=== PATIENT | male | born 1995 | race Caucasian/White ===

== ENCOUNTER 2016-06-30 16:42 | Day surgery (SDC) | payer BC, OTHER ==
[~2016-06-30] VITALS: Ht 195.6 cm; Wt 86.7 kg
[2016-06-30] MEDS ORDERED: SODIUM CHLORIDE FLUSH 10 ML SYR IV PRN (16:50)
[2016-06-30] MEDS: SODIUM CHLORIDE FLUSH 3 ML SYR IV PRN ×2 (17:06→18:17)
[2016-06-30 17:20] LABS: MEAN CORPUSCULAR HEMOGLOBIN 29.5 PG (26.0-34.0); MEAN CORPUSCULAR VOLUME 82 FL (80-100); MEAN PLATELET VOLUME 9.7 FL (6.0-9.5); PLATELET COUNT 240 10^3uL (150-450); WHITE BLOOD COUNT 21.63 10^3uL (4.0-11.0)
[2016-06-30 17:26] LABS: GLUCOSE, URINE (UA) Negative (Negative); LEUKOCYTE ESTERASE ,URINE Negative (Negative); UROBILINOGEN,URINE 0.2 mg/dL (0.2-1.0)
[2016-06-30 17:29] LABS: CLARITY,URINE Slightly Cloudy; COLOR,URINE Dark Yellow
[2016-06-30 17:30] LABS: BILIRUBIN,URINE 2+ (Negative)
[2016-06-30 17:30] LABS: MEAN CORPUSCULAR HGB CONC 35.9 g/dL (31.0-37.0)
[2016-06-30] MEDS ORDERED: HYDROmorphone 1 MG/ML (DILAUDID) SYRINGE IV ONE ×3 (17:30→19:30)
[2016-06-30 17:33] LABS: ALBUMIN 5.2 g/dL (3.4-5.0); ANION GAP 19.7 MEQ/L (3-15); TOTAL PROTEIN 8.5 g/dL (6.4-8.5)
[2016-06-30 17:45] LABS: BAND NEUTROPHILS % 1 % (0-6); SEGMENTED NEUTROPHILS % 84 % (51-67)
[2016-06-30 17:46] LABS: EOSINOPHILS % 0 % (0-4); LYMPHOCYTES # 1.5 #; MONOCYTES # 1.7 #; MONOCYTES % 8 % (3-11); RBC MORPH NORMAL (NORMAL); TOTAL CELLS COUNTED 100
[2016-06-30 17:49] LABS: RBC,URINE None Seen /HPF; URINE CENTRIFUGED VOLUME 12 mL
--- NOTE | 2016-06-30 18:09 | NUR ---
TEMP 100.6
--- NOTE | 2016-06-30 18:33 | NUR ---
PT TALKS ON PHONE TO FRIEND. CL
[2016-06-30] MEDS ORDERED: CEFOXITIN IV ONE (19:30)
[2016-06-30] MEDS ORDERED: SODIUM CHLORIDE IV ONE (19:30)
[2016-06-30] MEDS ORDERED: CEFOXITIN 1 GM ONE (19:35)
[2016-06-30] MEDS ORDERED: SODIUM CHLORIDE 100 ML ONE (19:36)
--- NOTE | 2016-06-30 19:37 | NUR ---
DR IRIZARRY CONTACTED BY DR ANDERSON AND HE WANTS HIM TO FLOOR ADMIT TO ASC OBSERVATION. LET TRAVEL CLERK KNOW THIS AND ALSO FRONT DEXK. PT TO GO TO ROOM [address] IRIZARRY WILL COME IN AND EXAMINE HIM
--- NOTE | 2016-06-30 19:52 | NUR ---
lead housekeeper Sharmaine aware of pt being admitted to ASC observation and that pt to go to room 315 on med surg
[2016-06-30 20:18] VITALS: BP 134/68
[2016-06-30] MEDS ORDERED: LACTATED RINGERS 1,000 ML IV ONE (20:21)
[2016-06-30] MEDS ORDERED: morphine INJ 2 MG/ML 1 ML SYRINGE IV PRN (21:35)
[2016-06-30] MEDS ORDERED: LACTATED RINGERS 1,000 ML IV SCH (21:35)
--- NOTE | 2016-06-30 23:09 | NUR ---
2001-Pt arrived to 315 via cart, accompanied by ER nurse. Pt is alert and oriented x 4, Resp even and nonlabored, LCTAB, HRRR, BS are hyperactive x 4 quadrants, rates pain 5/10, just received dose of Dilaudid in ER. PT is able to stand and transfer to weight chair and then to bed with no assist. Currently has abx running in to IV in RAC. Dr. Gupta is notified that pt is in room, and reports he will see pt in 20 minutes. 2029-Dr. Gupta is here visiting with pt, ordered stat CT of abdomen, and to call with results. 2114-Radiology here to take pt for CT. 2139-Pt is returned from radiology. 2224-Receive call from [facility] reporting pt has acute appendicitis, notify Dr. Gupta of results. 223-Dr. Gupta is visiting with pt and his parents about procedure and fills out surgical consent. 2245-gym supervisor notified to call in surgical team for appendectomy. 2255-Surgical consent signed by pt and witnessed by this RN.
[2016-06-30] MEDS ORDERED: BUPIVACAINE/EPINEPHRINE 0.5%-1:200,000 (MARCAINE) 30 ML VIAL INJ ONE (23:33)
[2016-06-30 23:35] VITALS: BP 126/73
[2016-06-30] MEDS ORDERED: ALFENTANIL 500 MCG/ML (ALFENTA) 5 ML AMP IV ONE (23:39)
[2016-06-30] MEDS ORDERED: MIDAZOLAM 2 MG/2 ML (VERSED) VIAL ONE (23:39)
[2016-06-30] MEDS ORDERED: PROPOFOL 20 ML IV ONE (23:39)
[2016-06-30] MEDS ORDERED: SUCCINYLCHOLINE 20 MG/ML 10 ML VIAL ONE (23:40)
[2016-07-01] VITALS (12 sets, daily range): BP systolic 103–129; BP diastolic 45–61
[2016-07-01] MEDS ORDERED: ROCURONIUM 50 MG/5 ML (ZEMURON) VIAL IV ONE (00:08)
[2016-07-01] MEDS ORDERED: GLYCOPYRROLATE 0.2 MG/ML (ROBINUL) 1 ML VIAL ONE ×3 (00:10→00:11)
[2016-07-01] MEDS ORDERED: NEOSTIGMINE 1 MG/ML SYRINGE ONE (00:10)
[2016-07-01] MEDS ORDERED: diphenhydrAMINE 50 MG/ML INJ (BENADRYL) ONE (00:16)
[2016-07-01] MEDS ORDERED: ONDANSETRON 2 MG/ML (Z0FRAN) 2 ML VIAL ONE (00:16)
[2016-07-01 00:22] LABS: BILIRUBIN,URINE Negative (Negative); CLARITY,URINE Clear; COLOR,URINE Yellow; GLUCOSE, URINE (UA) Negative (Negative); LEUKOCYTE ESTERASE ,URINE Negative (Negative); UROBILINOGEN,URINE 0.2 mg/dL (0.2-1.0)
[2016-07-01 00:43] LABS: RBC,URINE 0-2 /HPF; URINE CENTRIFUGED VOLUME 12 mL
[2016-07-01] MEDS ORDERED: KETOROLAC 60 MG/2 ML (TORADOL) VIAL IM ONE (01:11)
[2016-07-01] MEDS ORDERED: KETOROLAC 30 MG/ML (TORADOL) 1 ML VIAL IV PRN (02:30)
[2016-07-01] MEDS ORDERED: ONDANSETRON 4 MG (ZOFRAN) ORAL DISSOLVE TAB PO PRN (02:30)
[2016-07-01] MEDS ORDERED: LACTATED RINGERS 1,000 ML IV SCH (02:30)
--- NOTE | 2016-07-01 04:51 | NUR ---
0230-Pt returned from surgery, VS are WNL, IV is infusing without difficulty. Pt is drowsy, but awakens to name, parents are at bedside, rates pain 3/10. Call light is in reach, will continue to monitor. 0300-Prescription for Ultram given to mother, copy placed on chart. 0450-Pt continues to sleep, Resp even and nonlabored, Post-Op VS are WNL, will continue to monitor.
[2016-07-01] MEDS ORDERED: SODIUM CHLORIDE FLUSH 3 ML SYR ONE (07:23)
--- NOTE | 2016-07-01 08:31 | NUR ---
Reports jennifer fluids well. urinated without difficulty. Amb in hallway accompanied by Es.
--- NOTE | 2016-07-01 09:54 | NUR ---
dismissed to home per w/c accompanied by Es DO and parents. Skin w/p/d. Resp reg and unlabored. ALert and oriented x4.
== END 2016-07-01 09:55 | disposition home or self-care (01) ==
LOC: ED 16:46 → MED/SURG 19:38 → ED 20:15 → ASC 20:53 → MED/SURG 20:54 → ASC 07-01 09:55
PROVIDERS: ATTEND Surgery
DX: K35.3 Acute appendicitis with localized peritonitis (principal)
CPT/HCPCS: 36415; 44970; 74022; 74176; 76705; 80053; 81003; 81015; 83690; 85025; 96361; 96365; 96375; 96376; 99284; J0330; J0694; J1170; J1200; J1885; J2250; J2270; J2405; J2710; J3490; J7030; J7050; J7120

== ENCOUNTER 2016-07-13 16:02 | Inpatient (IN) | payer BC, OTHER ==
[~2016-07-13] VITALS: Ht 195.6 cm; Wt 82.6 kg
[2016-07-13 16:10] VITALS: BP 114/62
--- NOTE | 2016-07-13 16:10 | NUR ---
Patient admitted to room [address] Dai's office.
[2016-07-13] MEDS ORDERED: morphine INJ 2 MG/ML 1 ML SYRINGE IV PRN (16:25)
[2016-07-13] MEDS ORDERED: ONDANSETRON 2 MG/ML (Z0FRAN) 2 ML VIAL IV PRN (16:25)
[2016-07-13] MEDS ORDERED: ACETAMINOPHEN 325 MG TAB (TYLENOL) PO PRN (16:25)
[2016-07-13 16:32] VITALS: BP 114/62
--- NOTE | 2016-07-13 16:50 | NUR ---
Patient denies pain at this time. He reports intermittent pain since surgery on June 30.
[2016-07-13 17:33] LABS: BASOPHILS % (AUTO) 0 % (0-2); EOSINOPHILS % (AUTO) 0 % (0-4); LYMPHOCYTES # (AUTO) 1.1 X10^3; MEAN CORPUSCULAR HEMOGLOBIN 28.9 PG (26.0-34.0); MEAN CORPUSCULAR VOLUME 81 FL (80-100); MEAN PLATELET VOLUME 9.7 FL (6.0-9.5); MONOCYTES # (AUTO) 1.3 X10^3; MONOCYTES % (AUTO) 10 % (3-11); NEUTROPHILS # (AUTO) 10.5 X10^3; NEUTROPHILS % (AUTO) 81 % (51-67); PLATELET COUNT 271 10^3uL (150-450); WHITE BLOOD COUNT 12.93 10^3uL (4.0-11.0)
[2016-07-13 17:34] LABS: MEAN CORPUSCULAR HGB CONC 35.7 g/dL (31.0-37.0)
[2016-07-13 17:44] LABS: ALBUMIN 3.6 g/dL (3.4-5.0); ANION GAP 17.5 MEQ/L (3-15); CALCULATED IONIZED CALCIUM 3.9 mg/dL (3.8-4.6); TOTAL PROTEIN 7.3 g/dL (6.4-8.5)
--- NOTE | 2016-07-13 18:15 | NUR ---
Attempted IV access X2 but was unsuccessful.
--- NOTE | 2016-07-13 18:45 | NUR ---
20g IV started to LFA on first attempt by this nurse. SL intact, patent. Urmila Figueroa RN notified of IV site.
[2016-07-13] MEDS: oxyCODONE IMMEDIATE RELEASE 5 MG (OXYIR) TAB PO PRN (20:03)
[2016-07-13] MEDS: PIPERACILLIN/TAZOBACTAM 3.375 GM in SODIUM CHLORIDE 100 ML IV SCH ×2 (20:04→23:00)
[2016-07-14] VITALS (15 sets, daily range): BP systolic 109–150; BP diastolic 49–79
[2016-07-14] MEDS: oxyCODONE IMMEDIATE RELEASE 5 MG (OXYIR) TAB PO PRN ×3 (01:32→21:58)
[2016-07-14] MEDS: PIPERACILLIN/TAZOBACTAM 3.375 GM in SODIUM CHLORIDE 100 ML IV SCH ×3 (05:23→21:58)
--- NOTE | 2016-07-14 06:15 | NUR ---
Patient rests in bed throughout night without needs. Reports pain that "comes and goes" and is helped by OxyIr. Had required two doses today. No needs at this time.
[2016-07-14] MEDS: NS FLUSH 3 ML DAILY IV SCH (07:28)
--- NOTE | 2016-07-14 07:30 | NUR ---
Patient resting in bed upon shift assessment. Alert and oriented X3. Reports right lower abdominal pain rated 2/10 on pain scale. Denies nausea, chills, or other distress. HR RRR. Lung sounds CTAB. Bowel sounds audible in all quadrants. Updated on plan of care for shift. Call light in reach.
--- NOTE | 2016-07-14 08:01 | NUR ---
NUTRITION ASSESSMENT Level 1 Patient: Hernan Yanes Age/Sex: 21/M Date Screened: 07-14-16 Weight: 181.7#/82.6 kg Height: 77 inches Primary Diagnosis: abdominal abscess Diet Order: NPO Relevant labs: N/A Food allergies: N Nutrition Assessment Criteria Age over 80: N Body Mass Index (BMI) under 19: N Admission Screening Indicates Risk? 3 points Moderate/High Risk Diagnosis: 3 points TPN or PPN: N NPO or clear liquid diet: Y Serum Glucose <70 or >180: N/A Hgb A1c >6.7: N/A Total: 6 points Risk Screen: __ Patient at low nutritional risk based on available data; reevaluate in 5-7 days __ Patient at moderate nutritional risk based on available data; reevaluate in 3-5 days _X_ Patient at high nutritional risk; complete Nutrition Assessment within 48 hours of admission.
--- NOTE | 2016-07-14 08:39 | NUR ---
Consent signed by patient for CT guided abscess drainage. Witnessed by this nurse. Patient denies pain or distress. Call light in reach.
[2016-07-14] MEDS ORDERED: LACTATED RINGERS 1,000 ML IV SCH (09:50)
--- NOTE | 2016-07-14 11:03 | NUR ---
Patient to radiology via wheelchair.
[2016-07-14] MEDS ORDERED: ALFENTANIL 1,000 MCG/2 ML AMP IV ONE (11:08)
[2016-07-14] MEDS ORDERED: MIDAZOLAM 2 MG/2 ML (VERSED) VIAL ONE (11:08)
--- NOTE | 2016-07-14 12:06 | NUR ---
NUTRITION ASSESSMENT Level II Patient: Hernan Yanes Age/Sex: 21/M Date Assessed: 07-14-16 ASSESSMENT Pertinent History: Patient admitted with abdominal abscess and screened at high nutritional risk secondary to diagnosis and unintentional weight loss over the past 2 weeks. PMHx appears to be negative except for lap appy on 06-30-16. At that time pt. weighed 190.7#, and pt. reports since then he has had intermittent abdominal pain with poor appetite/intake. Plan is for CT-guided abscess drainage today. Meds/Nutrition: NS Weight: 181.7#/82.6 kg Height: 77 inches Body Mass Index (BMI): 21.6 [place] Body Weight : 208#/94.5 kg % IBW: 87% GASTROINTESTINAL Appetite: poor Diet Order: NPO Unintentional loss of >10 lbs. in 3 months: N Difficult to chew/swallow: N Diabetes: N Relevant Labs: N/A Calculations for Nutritional Assessment Estimated calorie needs: 25-28 kcals/kg = 2,050-2,300 kcals Estimated protein needs: 1.0 g/kg = 82 g./day DIAGNOSIS 1. Nutrition Diagnosis: Inadequate intake related to altered GI function as evidenced by abdominal abscess s/p appendectomy 2 weeks ago with abdominal pain/poor appetite and 9# weight loss (4.7%). NUTRITIONAL INTERVENTION Goal: Patient will receive adequate nutrition to meet his needs. Plan: Will monitor tolerance to diet as advanced and intake for adequacy. Expect appetite/intake to improve with resolution of abscess and improvement in symptoms. Also expect weight to return to UBW once he is eating regularly. Will follow with surgeon. MONITORING & EVALUATION __ Monitor patients menu selections __ Monitor patients food intake per nursing notes _X_ Monitor NPO/clear liquid days __ Monitor lab values __ Monitor I&O __ Other
--- NOTE | 2016-07-14 13:00 | NUR ---
Patient returns to room 303 via cart. Transfers to bed without assistance. Denies pain or distress. Drain intact to right lower abdomen. Vital signs WNL. Will continue to monitor.
--- NOTE | 2016-07-14 14:45 | NUR ---
Drain flushed at this time with 10ml NS per order. Patient tolerates well.
[2016-07-14] MEDS: NS FLUSH 10 ML PRN IV (14:56)
--- NOTE | 2016-07-14 17:50 | NUR ---
PRN OxyIR provided for c/o abdominal pain rated 5/10 on pain scale. Reports attempting to boost self in bed and experiencing 10/10 pain on scale. Drain intact to right lower abdomen. Parents at bedside. Call light in reach.
--- NOTE | 2016-07-14 20:00 | NUR ---
Resting in bed. Is alert and oriented. Abdominal dressing dry and intact. Drain intact with 200 cc brown drainage. Bowel sounds audible in all four quadrants. Denies nausea. Drowsy, arouses easily. No discomforts voiced at this time. Call light within reach.
--- NOTE | 2016-07-14 21:58 | NUR ---
Oxy IR administered per patient request for abdominal pain. Drainage back intact to abdominal wound. 200 cc brown fecal odor from drainage. Flushed tubing with 10 cc NS, returns readily pinkish drainage in tubing. IV Zosyn infusing as ordered. No other needs at this time. Call light within reach.
[2016-07-15] MEDS: oxyCODONE IMMEDIATE RELEASE 5 MG (OXYIR) TAB PO PRN ×4 (05:34→21:35)
--- NOTE | 2016-07-15 05:34 | NUR ---
Oxy IR given per patient request for abdominal pain. Does get relief from pain medication. Denies nausea. SL intact without complications at site. Approximately 250cc fecal smelling drainage in wound drainage bag. Patient has no concern or requests this morning. Call light within reach.
[2016-07-15] MEDS: PIPERACILLIN/TAZOBACTAM 3.375 GM in SODIUM CHLORIDE 100 ML IV SCH ×3 (05:35→22:00)
[2016-07-15 08:01] VITALS: BP 111/56
[2016-07-15] MEDS: NS FLUSH 3 ML DAILY IV SCH (10:00)
--- NOTE | 2016-07-15 10:07 | NUR ---
Pt c/o pain of 01/13. Oxy IR tab x1 given for pain. Pt has visitor in room.
--- NOTE | 2016-07-15 12:45 | NUR ---
Pt c/o pain, OxyIR tab 1 given for pain. Pt sitting up in bed, visitor at bedside.
[2016-07-15 15:35] VITALS: BP 120/75
[2016-07-15] MEDS: KETOROLAC 30 MG/ML (TORADOL) 1 ML VIAL IV SCH ×2 (16:17→21:35)
[2016-07-15 17:57] VITALS: BP 111/49
--- NOTE | 2016-07-15 18:40 | NUR ---
Drain flushed twice today, approximately 300cc in bag.
--- NOTE | 2016-07-15 20:00 | NUR ---
Patient resting in bed. Father at bedside. Visited with patient about the importance of ambulating tonight before bed. Denies pain at present time. Accordion drain intact with approximately 350 cc drainage. Patient comfortable at present time.
--- NOTE | 2016-07-15 21:35 | NUR ---
OxyIR 5mg administered for abdominal discomfort. Bowel sounds audible in al four quadrants. Ambulated two different times around the nursing station. Accordion drain flushed with 100 NS. Then hooked back to suction bag. Drainage in tubing is pink, while contents in the bag remain brown with fecal odor. Patient has no other needs at this time. Call light within reach.
[2016-07-16 00:48] VITALS: BP 92/56
[2016-07-16] MEDS: oxyCODONE IMMEDIATE RELEASE 5 MG (OXYIR) TAB PO PRN ×3 (03:09→21:37)
[2016-07-16] MEDS: KETOROLAC 30 MG/ML (TORADOL) 1 ML VIAL IV SCH ×5 (03:09→22:30)
--- NOTE | 2016-07-16 05:12 | NUR ---
0309-Pt rates pain a 7/10 Gave Toradol 30mg SIVP for discomfort and PRN Oxy IR 5mg PO. Will continue to monitor. 0340-Pt reports pain is much better, rates pain 3/10 at this time. 0515-Irrigated drain with 10ml of NS, pt tolerated well. Call light is in reach, will continue to monitor.
[2016-07-16] MEDS: PIPERACILLIN/TAZOBACTAM 3.375 GM in SODIUM CHLORIDE 100 ML IV SCH ×3 (05:35→22:37)
[2016-07-16 07:43] VITALS: BP 130/69
[2016-07-16] MEDS: NS FLUSH 3 ML DAILY IV SCH (08:08)
[2016-07-16 08:59] VITALS: BP 123/44
[2016-07-16 16:00] VITALS: BP 107/51
--- NOTE | 2016-07-16 21:40 | NUR ---
OxyIR 5 mg given for drain incisional pain rated "4".
[2016-07-16] MEDS: NS FLUSH 10 ML PRN IV ×2 (22:31→22:45)
--- NOTE | 2016-07-16 22:45 | NUR ---
Drain flushed with 10 cc NS; scant drainage noted in tubing prior to flush; minimal noted in bag; pt. tolerated procedure well. Pt. resting; HOB up; watching tv. Pt. requests [employer] to drink; will notify Stained Glass Artist. Pt. pleasant; quiet; voices concern about missing work. Call light within reach.
[2016-07-17 00:27] VITALS: BP 115/45
[2016-07-17] MEDS: KETOROLAC 30 MG/ML (TORADOL) 1 ML VIAL IV SCH (04:23)
[2016-07-17] MEDS: NS FLUSH 10 ML PRN IV ×3 (04:23→23:30)
[2016-07-17] MEDS: PIPERACILLIN/TAZOBACTAM 3.375 GM in SODIUM CHLORIDE 100 ML IV SCH ×3 (06:11→22:10)
[2016-07-17] MEDS: oxyCODONE IMMEDIATE RELEASE 5 MG (OXYIR) TAB PO PRN ×3 (06:11→20:08)
--- NOTE | 2016-07-17 06:15 | NUR ---
OxyIR 5 mg PO given for pain rated "4-5". Drain flushed without difficulty; scant amount of fluid noted to be in bag; tubing secure at site. Zosyn infusing currently; H2O replenished; call light by left side.
[2016-07-17] MEDS: NS FLUSH 3 ML PRN IV ×2 (06:20→13:28)
[2016-07-17 08:10] VITALS: BP 102/45
[2016-07-17] MEDS: NS FLUSH 3 ML DAILY IV SCH (09:00)
--- NOTE | 2016-07-17 09:26 | NUR ---
Pt awake, alert/oriented x4. Unmotivated to ambulate- set goal for 3 excursions in halls today. Rates abd pain 4/10- previously had OxyIR. Drain intact to Rt abd- scant amt pink drainage noted. Will cont to monitor this. Pt is awaiting Dr. Dai's arrival.
--- NOTE | 2016-07-17 10:18 | NUR ---
Dr. Dai at bedside.
--- NOTE | 2016-07-17 13:30 | NUR ---
Pt c/o 09/13 abd pain-asking for pain meds. OxyIR 5mg PO given for this pain. Pt encouraged to ambulate 3 times- his parents are at bedside and give this nurse a wink when patient says "Ok" when told to get up out of bed and walk.
--- NOTE | 2016-07-17 13:55 | NUR ---
Pt ambulating halls with dad x 2 laps.
[2016-07-17 15:38] VITALS: BP 105/46
--- NOTE | 2016-07-17 17:03 | NUR ---
Zoya Kurtz RN helped this nurse to flush drain from RLQ abdomen. Pt tolerated without c/o increased pain or discomfort- stated the flush just felt "cold". Pt and dad educated on flushing as well as care of drain and how to activate suction bulb. Verbalized understanding.
--- NOTE | 2016-07-17 20:10 | NUR ---
OxyIR 5 mg given for incisional discomfort rated "2". Drain at right lower abd is secure; resp are even and unlabored on room air; pt. more conversational with this nurse. Parents at bedside; all watching tv; pt. requests additional gatorade drink. Call light within reach.
--- NOTE | 2016-07-17 21:55 | NUR ---
Parents leaving for the evening; pt. resting in bed; drowsy; no current requests.
[2016-07-18 00:50] VITALS: BP 124/87
--- NOTE | 2016-07-18 02:30 | NUR ---
Pt. resting quietly; resp are even and unlabored on room air; appears to be in no distress. HOB elevated; call light and H2O within reach.
[2016-07-18] MEDS: PIPERACILLIN/TAZOBACTAM 3.375 GM in SODIUM CHLORIDE 100 ML IV SCH ×3 (06:35→21:24)
[2016-07-18] MEDS: oxyCODONE IMMEDIATE RELEASE 5 MG (OXYIR) TAB PO PRN (06:36)
--- NOTE | 2016-07-18 06:36 | NUR ---
Zosyn infusing without difficulty; OxyIR 5 mg given for pain level of "2" which elevates with activity. Drain flushed without difficulty; scant amount of fluid noted; pt. tolerated procedure well. Pt. states he slept well; is cooperative with cares; shows low initiative for ambulation, however. H2O and call light within reach.
[2016-07-18] MEDS: NS FLUSH 10 ML PRN IV (06:40)
[2016-07-18 08:08] VITALS: BP 106/44
[2016-07-18] MEDS ORDERED: SODIUM CHLORIDE 100 ML ONE (08:55)
[2016-07-18] MEDS: NS FLUSH 3 ML DAILY IV SCH ×2 (09:00→21:25)
--- NOTE | 2016-07-18 09:06 | NUR ---
Pt lying in bed. Zosyn infusing as ordered. Drain intact- clear pink fluid in drain bag. Pt rates pain 2/10. Previously had OxyIR 5mg at 0635. Pt states he will walk later this morning. States he is passing gas, but no BMs yet- denies feeling constipated. Will cont to encourage ambulation.
--- NOTE | 2016-07-18 10:00 | NUR ---
Dr. Dai at bedside.
--- NOTE | 2016-07-18 13:45 | NUR ---
Tylenol 650mg PO given for c/o abd pain rated 2/10. parents at bedside.
[2016-07-18] MEDS: NS FLUSH 3 ML PRN IV (13:49)
[2016-07-18 16:15] VITALS: BP 114/47
--- NOTE | 2016-07-18 17:39 | NUR ---
Pt has ambulated 3 full laps today. pain controlled. Drain flushed this afternoon with 10ml sterile NS flush- retuned to drainage bag clear fluid. Afebrile. Refuses to sit up in chair.
--- NOTE | 2016-07-18 19:30 | NUR ---
Pt is resting in bed watching tv, alert and oriented x4. SL is patent no redness, swelling, or s/s of infection noted at this time. Drain is patent, has been flushed TID without any difficulty to pt. See PM assessment for further information. Denies pain or discomfort at this time. Will continue to monitor.
[2016-07-19 00:02] VITALS: BP 112/68
--- NOTE | 2016-07-19 05:18 | NUR ---
Pt has been resting in bed asleep, has had no complaints of pain or discomfort during this shift. Drain was flushed with 10ml of NS. Call light is in reach, will continue to monitor.
[2016-07-19] MEDS: NS FLUSH 3 ML DAILY IV SCH (05:31)
[2016-07-19] MEDS: PIPERACILLIN/TAZOBACTAM 3.375 GM in SODIUM CHLORIDE 100 ML IV SCH ×3 (05:31→21:13)
[2016-07-19 06:07] LABS: WHITE BLOOD COUNT 15.08 10^3uL (4.0-11.0)
[2016-07-19 06:30] LABS: BAND NEUTROPHILS % 1 % (0-6); EOSINOPHILS % 2 % (0-4); LYMPHOCYTES # 1.8 #; MONOCYTES % 8 % (3-11); RBC MORPH NORMAL (NORMAL); SEGMENTED NEUTROPHILS % 76 % (51-67); TOTAL CELLS COUNTED 100
--- NOTE | 2016-07-19 07:25 | NUR ---
Patient awake in bed upon shift assessment. Denies abdominal pain, nausea, or other distress. Drain intact to RLQ and draining small amount of serous drainage. Bowel sounds audible in all quadrants. No fever noted. Updated on plan of care for shift. Call light in reach.
[2016-07-19 07:33] VITALS: BP 94/57
--- NOTE | 2016-07-19 08:42 | NUR ---
Dr. Dai at bedside and removes drain from RLQ. Patient tolerates well. Skin around insertion site mildly reddened. 4X4 and Tegaderm applied to site. Patient denies pain. Call light in reach.
[2016-07-19] MEDS: NS FLUSH 10 ML PRN IV ×2 (13:36→21:13)
--- NOTE | 2016-07-19 13:51 | NUR ---
MULTIDISCIPLINARY MTG: Pt. drain was removed today. Pt. WBC bumped up to 15 and if it doesn't drop Pt. will have a repeat CT. Pt. is receiving zosyn and is not complaining of any pain. No discharge needs identified at this time.
[2016-07-19 15:21] VITALS: BP 116/54
--- NOTE | 2016-07-19 18:39 | NUR ---
Patient resting in bed. Requires no pain medication throughout day shift. Remains afebrile. Dressing to drain site clean and dry. Numerous visitors at bedside. Call light in reach.
[2016-07-20 00:15] VITALS: BP 121/61
[2016-07-20] MEDS: NS FLUSH 10 ML PRN IV (05:34)
[2016-07-20] MEDS: PIPERACILLIN/TAZOBACTAM 3.375 GM in SODIUM CHLORIDE 100 ML IV SCH (05:34)
--- NOTE | 2016-07-20 05:39 | NUR ---
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 Pt rests w/o complaints. Denies pain. Resp even and non labored on RA. SL intact. Antibiotics infuse w/o difficulty. Pt denies needs at this time.
[2016-07-20 06:23] LABS: BASOPHILS % (AUTO) 0 % (0-2); EOSINOPHILS # (AUTO) 0.3 10^3uL; EOSINOPHILS % (AUTO) 2 % (0-4); LYMPHOCYTES # (AUTO) 1.8 X10^3; MEAN CORPUSCULAR HEMOGLOBIN 28.7 PG (26.0-34.0); MEAN CORPUSCULAR HGB CONC 34.6 g/dL (31.0-37.0); MEAN CORPUSCULAR VOLUME 83 FL (80-100); MEAN PLATELET VOLUME 9.1 FL (6.0-9.5); MONOCYTES % (AUTO) 7 % (3-11); NEUTROPHILS # (AUTO) 10.9 X10^3; NEUTROPHILS % (AUTO) 77 % (51-67); PLATELET COUNT 424 10^3uL (150-450); WHITE BLOOD COUNT 14.18 10^3uL (4.0-11.0)
[2016-07-20 07:14] LABS: MONOCYTES # 1.2 #
[2016-07-20 07:44] VITALS: BP 117/56
[2016-07-20] MEDS: NS FLUSH 3 ML DAILY IV SCH (09:00)
--- NOTE | 2016-07-20 09:50 | NUR ---
Discharge instructions reviewed with patient and father, both demonstrate understanding. SL removed with catheter tip intact. Bandage applied. Pt denies pain. Belongings gathered. Pharmacy reviewed medications with father and patient. Pt dismissed at this time via w/c accompanied by CHASE Murillo and father. Skin warm, dry, intact. Resprs nonlabored, even on RA.
== END 2016-07-20 09:50 | disposition home or self-care (01) | DRG 856 ==
LOC: MED/SURG 16:02
PROVIDERS: ADMIT Surgery; ATTEND Surgery
PROC: 0W9J3ZX Drainage of Pelvic Cavity, Percutaneous Approach, Diagnostic (ICD-10-PCS; principal; 2016-07-14)
PROC: 0W9G30Z Drainage of Peritoneal Cavity with Drainage Device, Percutaneous Approach (ICD-10-PCS; 2016-07-14)
DX: T81.4XXA Infection following a procedure, initial encounter (principal); K65.1 Peritoneal abscess; Y83.6 Removal of other organ (partial) (total) as the cause of abnormal reaction of the patient, or of later complication, without mention of misadventure at the time of the procedure; B96.20 Unspecified Escherichia coli [E. coli] as the cause of diseases classified elsewhere
CPT/HCPCS: 36415; 74178; 75989; 80048; 80053; 85007; 85025; 85048; 85610; 85730; 87070; 87075; 87077; 87186; 87205

== ENCOUNTER → 2016-07-13 | Outpatient (CLI) | payer BC, OTHER | LOC: RAD 14:29 | PROVIDERS: ATTEND Surgery | DX: R10.31 Right lower quadrant pain (principal); R93.5 Abnormal findings on diagnostic imaging of other abdominal regions, including retroperitoneum; Z98.890 Other specified postprocedural states | CPT/HCPCS: 74178; Q9967 ==